=== PATIENT | female | born 1950 | race Caucasian/White ===

== ENCOUNTER 2021-02-25 14:52 | Outpatient (CLI) | payer MEDICARE | END 2021-02-25 14:53 | disposition home or self-care (01) | LOC: CSHMAMMO 14:52 | PROVIDERS: ATTEND Family Medicine | DX: Z12.31 Encounter for screening mammogram for malignant neoplasm of breast (principal) | CPT/HCPCS: 77063; 77067 ==

== ENCOUNTER 2022-09-11 10:45 | Outpatient (CLI) | payer MEDICARE | END 2022-09-11 10:46 | disposition home or self-care (01) | LOC: CSHMAMMO 10:45 | PROVIDERS: ATTEND Family Medicine | DX: Z12.31 Encounter for screening mammogram for malignant neoplasm of breast (principal) | CPT/HCPCS: 77063; 77067 ==

== ENCOUNTER 2024-05-24 13:54 | Outpatient (CLI) | payer MEDICARE | END 2024-05-24 13:55 | disposition home or self-care (01) | LOC: CSHRAD 13:54 | PROVIDERS: ATTEND Physical Medicine & Rehabilitation | DX: M25.511 Pain in right shoulder (principal); M19.011 Primary osteoarthritis, right shoulder ==

== ENCOUNTER 2024-05-26 14:11 | Outpatient (CLI) | payer MEDICARE | END 2024-05-26 14:12 | disposition home or self-care (01) | LOC: CSHMRI 14:11 | PROVIDERS: ATTEND Physical Medicine & Rehabilitation | DX: M25.511 Pain in right shoulder (principal); M75.111 Incomplete rotator cuff tear or rupture of right shoulder, not specified as traumatic; M75.51 Bursitis of right shoulder; M25.711 Osteophyte, right shoulder; M75.21 Bicipital tendinitis, right shoulder; S43.431A Superior glenoid labrum lesion of right shoulder, initial encounter ==

== ENCOUNTER 2024-07-05 14:41 | Outpatient (CLI) | payer MEDICARE | END 2024-07-05 14:42 | disposition home or self-care (01) | LOC: CSHMRI 14:41 | PROVIDERS: ATTEND Family Medicine Sports Medicine | DX: M47.812 Spondylosis without myelopathy or radiculopathy, cervical region (principal) | CPT/HCPCS: 72141 ==